=== PATIENT | female | born 1990 | race Caucasian/White ===

== ENCOUNTER 2019-07-13 02:56 | Outpatient (CLI) | payer OTHER ==
[~2019-07-13] VITALS: Ht 170.2 cm; Wt 81.8 kg
[2019-07-13 03:20] VITALS: BP 107/61
== END 2019-07-13 04:25 | disposition home or self-care (01) ==
LOC: LDOP 02:56
PROVIDERS: ATTEND Obstetrics & Gynecology
DX: O26.893 Other specified pregnancy related conditions, third trimester (principal); R10.9 Unspecified abdominal pain; Z3A.37 37 weeks gestation of pregnancy
CPT/HCPCS: 59025; 81003; 99201; G0463